=== PATIENT | male | born 1945 | race Caucasian/White ===

== ENCOUNTER 2016-11-24 13:44 | Emergency (ER) | payer MEDICARE, SELFPAY ==
[~2016-11-24 13:44] MED LIST: ASPIRIN325 MG PO; GLUCOPHAGE1000 MG PO; GLUCOTROL5 MG PO; IMDUR ER TAB 3030 MG PO; METOPROLOL TART25 MG PO; NITROSTAT 0.40.4 MG SL; PROTONIX 40 MG40 M1 PO
[2016-11-24 14:41] LABS: HEMOGLOBIN 13.6 gm/dl (14.0-17.5); RED BLOOD COUNT 4.55 M/UL (4.20-5.50); WHITE BLOOD COUNT 7.3 K/UL (4.5-11.0)
[2017-02-23] MEDS ORDERED: ASPIRIN81 MG PO (22:17)
[2017-02-23] MEDS ORDERED: PLAVIX 75 MG TA75 MG PO (22:18)
[2017-02-23] MEDS ORDERED: PROTONIX 40 MG40 M1 PO (22:19)
[2017-02-25] MEDS ORDERED: MECLIZINE HCL25 MG PO (14:30)
[2017-04-10] MEDS ORDERED: LIPITOR TAB 2020 MG PO (13:20)
[2017-04-10] MEDS ORDERED: PRINIVIL20 MG PO (13:23)
[2017-04-10] MEDS ORDERED: FLOMAX 0.4 MG0.4 MG PO (13:25)
[2017-04-10] MEDS ORDERED: ARICEPT5 MG PO (13:26)
[2017-04-10] MEDS ORDERED: CARDURA 2MG TAB2 MG PO (13:26)
[2017-04-10] MEDS ORDERED: JANUVIA100 MG PO (13:27)
[2017-04-10] MEDS ORDERED: MIRTAZAPINE7.5 MG PO (13:29)
[2017-04-12] MEDS ORDERED: LEVAQUIN750 MG PO (20:11)
[2017-05-16] MEDS ORDERED: CLEOCIN HCL300 MG PO (20:25)
== END 2016-11-24 19:30 | disposition home or self-care (01) ==
LOC: ER1 13:44
PROVIDERS: Emergency Medicine
DX: M54.5 Low back pain (principal); E11.65 Type 2 diabetes mellitus with hyperglycemia; R32 Unspecified urinary incontinence; E78.5 Hyperlipidemia, unspecified; Z86.73 Personal history of transient ischemic attack (TIA), and cerebral infarction without residual deficits; Z88.2 Allergy status to sulfonamides; Z88.1 Allergy status to other antibiotic agents; Z88.6 Allergy status to analgesic agent; Z88.8 Allergy status to other drugs, medicaments and biological substances; Z79.84 Long term (current) use of oral hypoglycemic drugs; Z79.899 Other long term (current) drug therapy
CPT/HCPCS: 36415; 80053; 81001; 85025; 87086; 99284

== ENCOUNTER 2017-01-22 16:11 | Emergency (ER) | payer MEDICARE, SELFPAY ==
[2017-02-23] MEDS ORDERED: ASPIRIN81 MG PO (22:17)
[2017-02-23] MEDS ORDERED: PLAVIX 75 MG TA75 MG PO (22:18)
[2017-02-23] MEDS ORDERED: PROTONIX 40 MG40 M1 PO (22:19)
[2017-02-25] MEDS ORDERED: MECLIZINE HCL25 MG PO (14:30)
[2017-04-10] MEDS ORDERED: LIPITOR TAB 2020 MG PO (13:20)
[2017-04-10] MEDS ORDERED: PRINIVIL20 MG PO (13:23)
[2017-04-10] MEDS ORDERED: FLOMAX 0.4 MG0.4 MG PO (13:25)
[2017-04-10] MEDS ORDERED: ARICEPT5 MG PO (13:26)
[2017-04-10] MEDS ORDERED: CARDURA 2MG TAB2 MG PO (13:26)
[2017-04-10] MEDS ORDERED: JANUVIA100 MG PO (13:27)
[2017-04-10] MEDS ORDERED: MIRTAZAPINE7.5 MG PO (13:29)
[2017-04-12] MEDS ORDERED: LEVAQUIN750 MG PO (20:11)
[2017-05-16] MEDS ORDERED: CLEOCIN HCL300 MG PO (20:25)
== END 2017-01-22 17:05 | disposition home or self-care (01) ==
LOC: ER1 16:11
DX: T63.441A Toxic effect of venom of bees, accidental (unintentional), initial encounter (principal); R22.31 Localized swelling, mass and lump, right upper limb; I10 Essential (primary) hypertension; E11.42 Type 2 diabetes mellitus with diabetic polyneuropathy; J44.9 Chronic obstructive pulmonary disease, unspecified; Z86.73 Personal history of transient ischemic attack (TIA), and cerebral infarction without residual deficits; Z95.1 Presence of aortocoronary bypass graft; Z87.891 Personal history of nicotine dependence; Z88.1 Allergy status to other antibiotic agents; Z88.2 Allergy status to sulfonamides; Z88.8 Allergy status to other drugs, medicaments and biological substances
CPT/HCPCS: 99283; Q0163

== ENCOUNTER 2017-05-12 17:48 | Emergency (ER) | payer MEDICARE, OTHER ==
[~2017-05-12 17:48] MED LIST changes: +ARICEPT5 MG PO; +ASPIRIN81 MG PO; +CARDURA 2MG TAB2 MG PO; +FLOMAX 0.4 MG0.4 MG PO; +JANUVIA100 MG PO; +LEVAQUIN750 MG PO; +LIPITOR TAB 2020 MG PO; +MECLIZINE HCL25 MG PO; +MIRTAZAPINE7.5 MG PO; +PLAVIX 75 MG TA75 MG PO; +PRINIVIL20 MG PO
[2017-05-12 20:06] LABS: HEMOGLOBIN 12.4 gm/dl (14.0-17.5); RED BLOOD COUNT 4.19 M/UL (4.20-5.50); WHITE BLOOD COUNT 7.3 K/UL (4.5-11.0)
[2017-05-12 21:25] LABS: BUN/CREATININE RATIO 20 (0-10)
== END 2017-05-12 23:05 | disposition home or self-care (01) ==
LOC: ER1 17:48
PROVIDERS: Family Medicine
DX: E11.621 Type 2 diabetes mellitus with foot ulcer (principal); I73.9 Peripheral vascular disease, unspecified; I63.9 Cerebral infarction, unspecified; I20.9 Angina pectoris, unspecified; Z88.1 Allergy status to other antibiotic agents; Z88.6 Allergy status to analgesic agent; Z88.2 Allergy status to sulfonamides; Z91.041 Radiographic dye allergy status; Z79.84 Long term (current) use of oral hypoglycemic drugs
CPT/HCPCS: 36415; 73610; 80053; 85025; 86140; 99283